=== PATIENT | female | born 1935 | race Caucasian/White ===

== ENCOUNTER 2019-01-31 19:07 | Inpatient (IN) | payer MEDICARE, OTHER ==
--- NOTE | 2019-01-31 20:02 | RAD ---
AP VIEW OF THE PELVIS 01/31/19 INDICATION: Found in a puddle of blood; unwitnessed fall. FINDINGS: There is diffuse osteopenia. No definite displaced fracture is evident. There is a prominent amount o f retained stool within the colon. Bowel gas pattern is nonspecific. There is dextroscoliosis of the lumbar spine. IMPRESSION: No acute osseous abnormality is evident. POS: [facility]
--- NOTE | 2019-01-31 20:04 | RAD ---
THREE VIEWS RIGHT FORELE01/31/19 INDICATION: Fall. COMPARISON: None. FINDINGS/IMPRESSION: There is dystrophic calcifications within the soft tissues of the anterolateral right knee No definit e acute fracture or subluxation is evident. There is diffuse osteopenia. POS: [facility]
--- NOTE | 2019-01-31 20:05 | RAD ---
RIGHT HAND THREE VIEWS: 01/31/19 INDICATION: Fall with right hand pain. COMPARISON: None. FINDINGS: There is advanced first [facility]MC osteoarthrosis. No acute fracture or subluxation is evident. There is dif fuse osteopenia. Chondrocalcinosis seen within the radiocarpal joint. IMPRESSION: No acute osseous abnormality. POS: [facility]
--- NOTE | 2019-01-31 20:09 | RAD ---
CHEST ONE VIEW 01/31/19 INDICATION: History of unwitnessed fall. COMPARISON: Prior exam dated 02/14/14. Lungs are clear. There is mild cardiomegaly. Pulmonary vasculature appear within normal limits. No p leural effusion is evident. There is diffuse osteopenia. There is suggestion of possible an obliquely oriented fracture involving the right clavicle. Would recommend consideration for dedicated right sh oulder films to evaluate for possible clavicular injury. IMPRESSION: 1. No acute cardiopulmonary abnormality. 2. Suspicion for midshaft right clavicle fracture. POS: [facility]
[2019-01-31 20:17] LABS: #Lymphocytes 0.8 thou/uL (1.20-3.40); #Monocytes 0.6 thou/uL (0.11-0.59); #Neutrophils 10.4 thou/uL (1.40-6.50); %Eosinophils 0.2 % (0.0-10.0); %Neutrophils 87.7 % (42.0-75.0); Hemoglobin 12.5 g/dL (12.0-16.0); Mean Corpuscular HGB CONC 30.7 g/dL (32.0-36.0); Mean Corpuscular Hemoglobin 28.5 pg (27.0-31.0); Mean Corpuscular Volume 92.7 fL (78.0-98.0); Mean Platelet Volume 8.8 fL (7.4-10.4); Platelet Count 170 thou/uL (130-400); RBC Distribution Width 12.8 % (11.5-14.5); Red Blood Cell (RBC) Count 4.39 mill/uL (4.20-5.40); White Blood Cell (WBC) Count 11.8 thou/uL (4.8-10.8)
--- NOTE | 2019-01-31 20:17 | CT ---
CT CERVICAL SPINE NONCONTRAST: 01/31/19 HISTORY: 84-year-old female status post acute cervical trauma from fall. FINDINGS: There are no jumped or perched facets. There is no evidence of acute fracture. The vertebral body h eights are maintained. There is no prevertebral soft tissue swelling. IMPRESSION: No evidence of acute fracture or acute traumatic subluxation. jn [] POS: [facility]
--- NOTE | 2019-01-31 20:21 | CT ---
CT OF THE FACE WITHOUT CONTRAST 01/31/19 INDICATION: Fall with facial injuries. FINDINGS: There is a prominent right periorbital contusion and right across scalp contusion. Right [place] lens has been replaced. There is sinus wall thickening involving the right maxillary sinus with mucosal th ickening. No definite acute fracture or subluxation is present. There is prominent multilevel spondyl osis of the visualized upper cervical spine. craniocervical junction appears within normal limits. Th e visualized intracranial contents are within normal limits. IMPRESSION: 1. No acute fracture or subluxation. 2. Prominent right periorbital soft tissue contusion. 3. Chronic sinusitis of the right maxillary sinus. POS: [facility]
[2019-01-31 20:25] LABS: INR-International Normal Ratio 1.4; PTT 27.1 SEC (22.9-36.1); Prothrombin Time 16.9 SEC (12.0-14.7)
--- NOTE | 2019-01-31 20:25 | CT ---
CT OF THE BRAIN WITHOUT CONTRAST 01/31/19 INDICATION: History of fall with concern for head injury. FINDINGS: There is a prominent right periorbital and right frontal scalp contusion. The right resighini lens has b een replaced. There is mucosal thickening with sinus wall thickening involving the right maxillary si nus with changes of chronic sinusitis. No acute infarct, hemorrhage, or hydrocephalus is present. There is stable remote lacunar infarct inv olving the right thalamus when compared to prior dated 01/31/14. There is generalized cerebral and cerebellar atrophy. There is mild chronic small vessel white matte r ischemic change. IMPRESSION: 1. No acute intracranial abnormality. 2. Soft tissue swelling of the right periorbital region right frontal scalp. 3. Chronic sinusitis changes involving the right maxillary sinus. POS: [facility]
[2019-01-31 20:42] LABS: ALT (SGPT) 12 U/L (8-55); AST (SGOT) 31 U/L (5-34); Acetaminophen Less than 6.0 mcg/mL (10.0-30.0); Albumin 3.5 g/dL (3.4-4.8); Alcohol Less than 10 mg/dL (Less than 10); Alkaline Phosphatase 96 U/L (40-150); Anion Gap 19 mmol/L (10-20); BUN (Urea Nitrogen) 49 mg/dL (9.8-20.1); Bilirubin, Total 1.3 mg/dL (0.2-1.2); CK (CPK) 959 U/L (29-168); Calc. Creatinine Clearance 0 mL/min (70-130); Calcium 10.1 mg/dL (7.8-10.44); Carbon Dioxide 31 mmol/L (23-31); Chloride 100 mmol/L (98-107); Estimated GFR-MDRD 14; Globulin 3.6 g/dL (2.4-3.5); Glucose 151 mg/dL (83-110); Lipase 57 U/L (8-78); Protein, Total 7.1 g/dL (6.0-8.3); Salicylate Less than 8.0 mg/dL (15.0-30.0); Sodium 147 mmol/L (136-145)
[2019-01-31 21:10] LABS: CKMB 15.5 ng/mL (0-6.6)
[2019-01-31 21:42] LABS: Bilirubin Small (Negative); Blood, Urine Large (Negative); Clarity CLOUDY (Clear); Glucose, Urine (Dipstick) Negative (Negative); Leukocyte Negative (Negative); Nitrite Negative (Negative); Protein, Urine (Dipstick) 30 mg/dL (Neg-Trace); Specific Gravity, Urine 1.013 (1.002-1.036); Urobilinogen 0.2 mg/dL (0.2-1.0)
[2019-01-31 21:43] LABS: Bacteria/HPF None Seen HPF (None Seen); Hyaline Casts/LPF 4-6 HYALINE CAST LPF (0-3 Hyaline); Pathc Cast-AUWi Flag 0.95 (0-2.49); Squamous Epithelial 0-3 HPF (0-3); WBC/HPF 0-3 HPF (0-3); Yeast-AUWi Flag 42.1 (0-25.0)
[2019-01-31 21:48] LABS: Amphetamine Not Detected (NotDetected); Barbiturates Screen Not Detected (NotDetected); Benzodiazepine Screen Not Detected (NotDetected); Cocaine Metabolite Screen Not Detected (NotDetected); Medtox Reader # READER 4; Methadone Not Detected (NotDetected); Methamphetamine Not Detected (NotDetected); Opiate Screen Not Detected (NotDetected); Oxycodone Screen Not Detected (NotDetected); Phencyclidine (PCP) Not Detected (NotDetected); THC/Cannabinoid Screen Not Detected (NotDetected); Tricyclic Screen Not Detected (NotDetected)
[2019-01-31 21:49] LABS: Medtox Control Line Valid? VALID (VALID)
[2019-01-31] MEDS ORDERED: Dextrose 5% in Water 1,000 ML IV PRN (22:33)
[2019-01-31] MEDS ORDERED: Dextrose 50% Abboject 50 ML SYRINGE SLOW IVP PRN (22:33)
[2019-01-31] MEDS ORDERED: hydrALAZINE 20 MG/ML VIAL SLOW IVP PRN (22:33)
[2019-01-31] MEDS ORDERED: traMADol HCl 50 MG TAB PO PRN (22:42)
[2019-01-31] MEDS ORDERED: Potassium Chloride 40 MEQ in Sodium Chloride 0.9% 500 ML IVPB SCH (23:59)
[2019-02-01] MEDS ORDERED: Bacitracin Zinc 1 Packet ONE (00:04)
--- NOTE | 2019-02-01 00:15 | HP ---
HISTORY OF PRESENT ILLNESS: An 84-year-old woman brought into the emergency room by EMS after falling today and hitting her head. Patient denies losing consciousness, but initially was unable to tell the ER why she fell. Patient lives alone and her neighbors check on her daily. The neighbors report she has family, but her family does not come to see her. They also state that they have been watching over her and checking on her for many years now and feel that she should not be living alone. They did report her primary care physician started her with physical therapy which comes to her home two times a week. She was found face down on the floor when the neighbor arrived to check on her and reports she was a little confused. The patient uses a walker or a cane when getting around at home per her neighbors. Patient was worked up in the emergency room due to multiple falls. Patient was found to have an elevated troponin level and NSTEMI. Cardiology was consulted by the ER physician. Patient is on Eliquis, but unable to verbalize why she is taking it. Patient is unable to give a full medical history. Patient reports right clavicle pain, right hand pain. Patient denies being short of breath, dizziness or chest pain prior to falling. Patient received 1 liter NS in ER. ALLERGIES: DENIES ANY DRUG ALLERGIES. HOME MEDICATIONS: Lasix 40 mg daily, Losartan 50 mg daily, Eliquis 2.5mg BID, Mirtazapine 30 mg dailyu, Carvediol 3.125 mg BID, B12 1000mg PAST MEDICAL HISTORY: Hypertension, osteoporosis, and coronary artery disease. PAST SURGICAL HISTORY: Right knee, cardiac catheterization in 2004, and ovarian surgery. SOCIAL HISTORY: Patient lives alone in her home, denies alcohol use, denies drug use, denies smoking history. REVIEW OF SYSTEMS: A 10-point review of system is negative unless otherwise stated in the HPI. PHYSICAL EXAMINATION: VITAL SIGNS: Blood pressure 115/64, pulse 79, respirations 20, SpO2 of 95% on room air, and temperature 98.6. GENERAL: Patient is awake and alert, in no distress. HEENT: A 2 cm superficial laceration over the right eyebrow, closed in the ER with Steri-Strips. Bleeding is controlled. Right periorbital area with ecchymosis and edema, difficulty opening eye due to swelling. Left pupil 3 mm and reactive. Pharynx exam normal. Mucous membranes moist. Trachea is midline. NECK: No JVD. RESPIRATORY: Breath sounds clear. No respiratory distress. No wheezing, rales , or rhonchi. CARDIOVASCULAR: Regular rate and rhythm. No murmur. No pedal edema. ABDOMEN: Soft, nontender, and nondistended. Active bowel sounds. EXTREMITIES: Moves all extremities. Positive distal pulses. Right hand with superficial abrasion on the dorsal aspect, no active bleeding, no laceration. Both knees with bilateral contusions. Positive distal pulses. Full range of motion. NEUROLOGIC: Patient is oriented to person, place, and time. GCS is 15. LABORATORY DATA: WBC 11.8, RBC 4.39, hemoglobin 12.5, hematocrit 40.7, and platelets 170. PT 16.9, INR 1.4, and APTT 27.1. Sodium 147, potassium 3.0, chloride 100, CO2 is 31, anion gap 19, BUN 49, creatinine 3.06, estimated GFR 14 , glucose 151, calcium 10.1, total bilirubin 1.3, AST 31, ALT 12, and alkaline phos 96. CK 959, CK-MB 15.5, troponin I 4.368, and BNP 2005.1. Serum total protein 7.1, albumin 3.5, globulin 3.6, and lipase 57. Urinalysis; protein 30, nitrites negative, negative leukocyte esterase, negative white blood cells, negative rbc , no bacteria seen. Plasma alcohol less than 10. DIAGNOSTICS: 1. Pelvis CT, no acute abnormalities. Chest x-ray, no acute cardiopulmonary abnormality. Suspicion for a midshaft right clavicular fracture. 2. Facial bone CT, no acute fracture or subluxation. Cervical spine CT, no evidence of acute fracture or acute traumatic subluxation. 3. Right hand x-ray, no acute abnormality. 4. Tibia, fibula x-ray, right. No acute fracture. 5. Brain CT; no acute intracranial abnormality. Soft tissue swelling of the right periorbital region, right frontal scalp. Chronic sinusitis changes involving the right maxillary sinus. 6. Ground level fall, unwitnessed, recurrent falls. 7. Right clavicle fracture. 8. Right periorbital contusion, on Eliquis. 9. [id number]-[id number] myocardial infarction. 10. Acute on chronic kidney disease. 11. Failure to thrive. PLAN: We will admit patient to the IMCU for q.2 hours neuro checks. We will repeat head CT in the morning. Unless patient has a change in GCS, then we will repeat a head CT sooner. Cardiology has been consulted for exc-BY-gbyijimhh KS. We will trend patient's troponins. We will trend kidney function and start on low maintenance IV fluids. We will hold patient's Eliquis. We will order physical and occupational therapy. We will also anticipate and plan for either inpatient rehab or long-term care as the patient has had multiple falls and the neighbors report that they do not feel like she is safe at home and needs 24-hour care. The plan has been discussed with Dr. Aguilera, who agrees. Job ID: [id number] [facility]
[2019-02-01 00:20] LABS: CKMB 27.3 ng/mL (0-6.6)
[2019-02-01] MEDS: Acetaminophen 325 MG TAB PO SCH ×5 (02:15→18:31)
[2019-02-01 02:37] VITALS: BMI 18.3
--- NOTE | 2019-02-01 07:58 | ULT ---
DOPPLER VENOUS ULTRASOUND OF BOTH LOWER EXTREMITIES: CPT: 15885 ICD-10-PCS: B54D INDICATION: Concern for bilateral DVTs with elevated D-dimer. TECHNIQUE: Color flow Doppler, spectral waveform analysis of pulsed Doppler, and jennings-scale imaging with samra augusto and augmentation, were used to evaluate the bilateral common femoral, femoral, popliteal, analog ic design engineer ior tibial, and superficial femoral, veins; and the proximal portions of the profunda femoral and gre ater saphenous, veins. FINDINGS: There is diminished compression at the right common femoral vein with evidence of an eccentric hetero geneous clot within the right common femoral vein suspicious for chronic DVT. Normal compression and flow are seen within the right profunda femoral vein. There is eccentric partially compressible lupis t that is partially occlusive within the right proximal, right mid, and right distal femoral vein. A ppropriate flow and augmentation is seen within the right popliteal vein and right posterior tibial v ein. There is partially occlusive eccentric clot seen within the anterior aspect of the left common femora l vein. There is normal flow present within the left femoral veins. Some eccentric partially occlus ericka thrombus is seen at the left popliteal vein. Normal flow is seen within the left posterior tibia l vein. IMPRESSION: 1. Findings of chronic-appearing deep vein thrombosis at the level of the right common femoral vein through the level of the right superficial femoral vein. 2. Chronic-appearing deep vein thrombosis at the left common femoral vein and left popliteal vein. POS: [facility]
--- NOTE | 2019-02-01 08:01 | CT ---
CT HEAD NONCONTRAST: COMPARISON: Previous day. INDICATION: Anticoagulated patient with a history of head trauma related to fall. FINDINGS: Head CT is stable to previous day without interval development of acute intracranial hemorrhage, mass effect, or midline shift. There remains a prominent-sized frontal scalp and facial hematoma extendi ng to the right periorbital region. Chronic ischemic disease is similar. There is a stable calvaria l lucency at the occiput which indicates an arachnoid granulation. IMPRESSION: No interval acute intracranial hemorrhage or mass effect. POS: [facility]
[2019-02-01] MEDS ORDERED: Sodium Chloride 0.9% 1,000 ML IV SCH (08:45)
[2019-02-01] MEDS ORDERED: Prevnar 13-Val Conj/PF 0.5 ML SYRINGE IM ONE (09:00)
[2019-02-01 09:16] LABS: #Lymphocytes 2.1 thou/uL (1.20-3.40); #Monocytes 0.9 thou/uL (0.11-0.59); #Neutrophils 7.6 thou/uL (1.40-6.50); %Basophils 0.2 % (0.0-1.0); %Eosinophils 0.3 % (0.0-10.0); %Lymphocytes 19.9 % (21.0-51.0); %Monocytes 8.1 % (0.0-10.0); %Neutrophils 71.5 % (42.0-75.0); Hemoglobin 10.9 g/dL (12.0-16.0); Mean Corpuscular HGB CONC 31.2 g/dL (32.0-36.0); Mean Corpuscular Hemoglobin 28.4 pg (27.0-31.0); Mean Corpuscular Volume 91.1 fL (78.0-98.0); Mean Platelet Volume 8.9 fL (7.4-10.4); Platelet Count 151 thou/uL (130-400); RBC Distribution Width 12.7 % (11.5-14.5); Red Blood Cell (RBC) Count 3.84 mill/uL (4.20-5.40); White Blood Cell (WBC) Count 10.7 thou/uL (4.8-10.8)
[2019-02-01 09:27] LABS: INR-International Normal Ratio 1.4; PTT 30.8 SEC (22.9-36.1); Prothrombin Time 17.5 SEC (12.0-14.7)
[2019-02-01] MEDS: Senokot S 8.6-50 MG TAB PO SCH ×3 (09:31→20:28)
[2019-02-01 09:44] LABS: Phosphorus 3.5 mg/dL (2.3-4.7)
[2019-02-01 09:47] LABS: ALT (SGPT) 15 U/L (8-55); AST (SGOT) 56 U/L (5-34); Albumin 2.8 g/dL (3.4-4.8); Alkaline Phosphatase 77 U/L (40-150); Anion Gap 12 mmol/L (10-20); BUN (Urea Nitrogen) 52 mg/dL (9.8-20.1); Calc. Creatinine Clearance 13 mL/min (70-130); Calcium 9.1 mg/dL (7.8-10.44); Carbon Dioxide 31 mmol/L (23-31); Chloride 107 mmol/L (98-107); Estimated GFR-MDRD 19; Globulin 3.1 g/dL (2.4-3.5); Glucose 109 mg/dL (83-110); Magnesium 1.7 mg/dL (1.6-2.6); Potassium 3.6 mmol/L (3.5-5.1); Protein, Total 5.9 g/dL (6.0-8.3); Sodium 146 mmol/L (136-145)
[2019-02-01 09:55] LABS: Critical Call Chem Troponin I RESULT DECREASING
[2019-02-01 10:22] LABS: CKMB 31.4 ng/mL (0-6.6)
[2019-02-01] MEDS: Sodium Chloride 0.9% 1,000 ML IV SCH ×2 (11:00→12:40)
[2019-02-01] MEDS ORDERED: Sodium Chloride 0.9% 500 ML IV SCH (12:15)
[2019-02-01] MEDS: Polyethylene Glycol 3350 17 GM Packet PO SCH (12:42)
--- NOTE | 2019-02-01 12:51 | CON ---
DATE OF CONSULTATION: REASON FOR CONSULTATION: Elevated troponin, DVT, and recent fall. HISTORY OF PRESENT ILLNESS: Ms. Noel is an 84-year-old woman, who has been seen and evaluated by Dr. Salvador Juares in the past. She has a previous history of underlying coronary artery disease with thrombus present to the right coronary artery in 2004. This was treated medically. Source was felt to be unknown. She was last seen and evaluated by Dr. Salvador Juares on October 28, 2018. She has not had an echo in the office recently. Recently, she fell. She states she tripped. No syncope or presyncope. She had significant trauma noted to the head area. Her CT scan was negative for significant bleed. She also had a fractured clavicle. No chest pain or pressure noted. She is currently on Eliquis for what appears to be a DVT. Her ultrasound of the lower extremities did suggest partial occlusion of the distal common femoral vein bilaterally. PAST CARDIAC HISTORY: As described above. PAST MEDICAL HISTORY: Hyperlipidemia, mitral valve disease, previous GA, chronic kidney disease, lower extremity edema, hypertension, and ischemic cardiomyopathy. ALLERGIES: NONE. HOME MEDICATIONS: Include: 1. Lasix. 2. Carvedilol. 3. Losartan. 4. Eliquis. 5. Mirtazapine. PAST SURGICAL HISTORY: Knee surgery and ovarian surgery. SOCIAL HISTORY: She currently lives alone. REVIEW OF SYMPTOMS: Ten-point review of systems is reviewed as above, otherwise negative. PHYSICAL EXAMINATION: VITAL SIGNS: Blood pressure 116/62, pulse 80, and respirations 20. GENERAL: Patient is a pleasant woman, who is in no acute distress. The patient appears their stated age. NEUROLOGIC: The patient is alert and oriented x3 with no focal neurologic deficits. HEENT: Significant ecchymosis overlying the right and left orbital areas as well as chin. NECK: No JVD. Carotid upstroke brisk. No bruits bilaterally. LUNGS: Clear to auscultation with unlabored respirations. BACK: No scoliosis or kyphosis. CARDIAC: Regular rate and rhythm with normal S1 and S2. No S3 or S4 noted. No significant rubs, murmurs, thrills, or gallops noted throughout the precordium. PMI is not displaced. There is no parasternal heave. ABDOMEN: Soft, nontender, nondistended. No peritoneal signs present. No hepatosplenomegaly. No abnormal striae. EXTREMITIES: 2+ femoral and 2+ dorsalis pedis pulses. No cyanosis, clubbing, or edema. SKIN: No gross abnormalities PERTINENT LABORATORY DATA: Sodium 146, BUN 52, creatinine 2.47. CK-MB of 31 with a troponin at 5.3 and downtrending. IMPRESSION: 1. Elevated troponin. 2. Previous coronary artery disease. 3. Deep venous thrombosis. 4. Fractured clavicle. RECOMMENDATIONS: Certainly, it is a difficult situation for Ms. Noel. She has not had any recent studies in the office to assess her coronary anatomy. She does have mild confusion underlying. I have reached out to her family member and was unable to. At this point, we would recommend conservative therapy based on her kidney function. Could proceed with a noninvasive stress study, but I am not sure the treatment would change. We would recommend echo Doppler and we will review. We would also recommend an IVC filter. It appeared she has a history of significant falls while at home. She will also need placement. We will discuss IVC filter placement with family. It may need to be an internal jugular approach based on the findings, although, after reviewing her ultrasound, there may be an option to access the right common femoral vein. Hold Ricky. Job ID: [id number]
--- NOTE | 2019-02-01 13:01 | RAD ---
KUB: COMPARISON: None. HISTORY: Dobbhoff tube placement. FINDINGS: A single view of the abdomen shows a nonspecific, nonobstructed bowel gas pattern. A Dobbhoff tube i s seen in the left upper quadrant of the abdomen, likely within the stomach. Degenerative changes ar e seen in the spine. IMPRESSION: Dobbhoff tube located in the stomach. POS: [facility]
[2019-02-01 16:34] LABS: #Eosinphils 0.1 thou/uL (0.0-0.7); #Lymphocytes 2.8 thou/uL (1.20-3.40); #Monocytes 0.6 thou/uL (0.11-0.59); %Eosinophils 0.7 % (0.0-10.0); %Lymphocytes 22.3 % (21.0-51.0); Hemoglobin 11.3 g/dL (12.0-16.0); Mean Corpuscular HGB CONC 31.8 g/dL (32.0-36.0); Mean Corpuscular Hemoglobin 28.9 pg (27.0-31.0); Mean Corpuscular Volume 90.9 fL (78.0-98.0); Mean Platelet Volume 8.9 fL (7.4-10.4); Platelet Count 155 thou/uL (130-400); RBC Distribution Width 12.7 % (11.5-14.5); White Blood Cell (WBC) Count 12.5 thou/uL (4.8-10.8)
--- NOTE | 2019-02-01 17:46 | PRG ---
DATE OF SERVICE: 02/01/2019 SUBJECTIVE: Ms. Noel is an 84-year-old woman who was admitted yesterday following recurrent falls. This time, she suffered multiple soft tissue contusions as well as right clavicle fracture. This requires no operative intervention. The patient is on Eliquis at home for a history of lower extremity VTE. She has a [id number] myocardial infarction for which Cardiology anticipates no intervention at this time. Her chronic kidney disease is stable. Nursing reports adequate urinary output. The patient has very poor appetite. She is quite deconditioned, cachectic, and anorexic. OBJECTIVE: VITAL SIGNS: This morning include blood pressure 97/58, pulse is 64, respiratory rate is 13, temperature 98.3 degrees Fahrenheit, oxygen saturation 95% on 2 L by nasal cannula oxygen. HEENT: Multiple facial contusions, stable. Pupils are equal, round, and reactive to light and accommodation. HEART: Reveals regular rate and rhythm. LUNGS: Clear to auscultation bilaterally. Breathing, regular and unlabored. ABDOMEN: Soft, nontender, and nondistended. NEUROLOGIC: Reveals no focal deficits present. LABORATORY FINDINGS: Today include a CBC with 12,500 white blood cells, hemoglobin and hematocrit 11.3 and 35.4 respectively. Platelet count is 155,000. Metabolic profile; sodium 146, potassium is 3.6, chloride is 107, bicarb is 31, BUN is 52, creatinine is 2.47, glucose is 109, phosphorus is 3.5, magnesium is 1.7. Troponin I was noted at 5.908, and 6 hours later, it was 5.365. BNP yesterday was 2005. IMPRESSIONS: 1. Recurrent multiple falls, on Eliquis. 2. History of venous thromboembolism. 3. Right clavicle fracture. 4. Multiple soft tissue contusions. 5. Cachexia with chronic malnutrition. PLAN: Continue with physical and occupational therapy. I discussed with the patient with regard to nutritional support. She is agreeable to short-term nasogastric tube enteral nutritional supplementation. This will be in addition to whatever she is able to take by mouth. We will ask comp field case manager to begin discharge planning hopefully to longterm facility as the patient is clearly unable to care for herself at home. Cardiology is considering placement of IVC filter as this patient with a history of multiple falls at this age is at very high-risk for devastating intracranial hemorrhage. The patient agrees with plan. Job ID: [id number]
[2019-02-02] MEDS: Acetaminophen 325 MG TAB PO SCH ×4 (00:37→18:29)
[2019-02-02 06:31] LABS: INR-International Normal Ratio 1.3; PTT 32.3 SEC (22.9-36.1); Prothrombin Time 16.4 SEC (12.0-14.7)
[2019-02-02 06:47] LABS: Anion Gap 10 mmol/L (10-20); BUN (Urea Nitrogen) 51 mg/dL (9.8-20.1); Calc. Creatinine Clearance 16 mL/min (70-130); Calcium 8.8 mg/dL (7.8-10.44); Carbon Dioxide 31 mmol/L (23-31); Chloride 110 mmol/L (98-107); Estimated GFR-MDRD 23; Glucose 148 mg/dL (83-110); Magnesium 1.7 mg/dL (1.6-2.6); Potassium 3.3 mmol/L (3.5-5.1); Sodium 148 mmol/L (136-145)
[2019-02-02] MEDS: Sodium Chloride 0.9% 1,000 ML IV SCH (07:13)
[2019-02-02] MEDS ORDERED: Magnesium Sulfate 2 GM in Sodium Chloride 0.9% 100 ML IVPB SCH (09:00)
[2019-02-02] MEDS ORDERED: Lactated Ringer's 1,000 ML IV SCH (09:45)
[2019-02-02] MEDS ORDERED: Potassium Phosphate 30 MMOL, Magnesium Sulfate 2 GM in Sodium Chloride 0.9% 500 ML IVPB SCH (10:00)
[2019-02-02] MEDS: Senokot S 8.6-50 MG TAB PO SCH ×2 (11:30→20:55)
[2019-02-02] MEDS: Polyethylene Glycol 3350 17 GM Packet PO SCH (11:32)
[2019-02-02] MEDS: D5 1/2 NS w/20 mEq KCL 1,000 ML IV SCH ×2 (11:35→20:55)
--- NOTE | 2019-02-02 12:56 | PRG ---
DATE OF SERVICE: 02/02/2019 SUBJECTIVE: Ms. Noel today is much more oriented and alert. She is alert to time, person, and place. She is seen sitting up. She has less swelling to her right eye. After talking to her about a recent fall, she states she is not susceptible to falls. She has had 2 falls in the last week, but otherwise has not had any falls over the last 6 months. This was confirmed by Kayleigh, care provider. Ms. Noel has no immediate family. No kids and her . OBJECTIVE: VITAL SIGNS: Blood pressure 110/54, pulse 99, and temperature afebrile. LUNGS: Clear to auscultation. HEART: Regular rate and rhythm. ABDOMEN: Soft, nontender, and nondistended. EXTREMITIES: No edema. DIAGNOSTIC DATA: Echo, Doppler pending. PERTINENT LABORATORY DATA: Hemoglobin 11.3 and white blood cell count 12.5. IMPRESSION: 1. Myocardial infarction, type 2. 2. Previous history of ischemic cardiomyopathy. 3. Acute on chronic renal insufficiency. 4. Recent fall. 5. Chronic deep venous thrombosis. RECOMMENDATIONS: I have discussed the case with Ms. Noel as well as Kayleigh, her provider. It does not appear she is susceptible to falls. At this point, I would recommend restarting anticoagulation therapy when okay with primary team. At this point, there is no indication for IVC filter placement. If she continues to have issues with falls (this may be related to volume contraction), then we would reconsider IVC filter placement. We will review her echo. Job ID: [id number]
--- NOTE | 2019-02-02 14:29 | PRG ---
DATE OF SERVICE: 02/02/2019 SUBJECTIVE: Ms. Noel is an 84-year-old woman, who was admitted 2 days previously for ground level fall. The patient is more awake and alert this morning and very interactive. She was very thankful for the care she has been receiving. She moves all extremities and answers questions appropriately. She was wondering when it will be possible for her to have something to drink as she has been n.p.o. for previously planned IVC filter placement. I conferred with Dr. Fagan from Cardiology Department this morning. We will both concurred that given the patient is more awake and alert, chances of fall becomes less. It is conceivable that with safety measures in place including transfer to alf facility, initiating chemical VTE prophylaxis will be appropriate at this time. To this end, IVC filter placement will be withheld. OBJECTIVE: VITAL SIGNS: This morning includes blood pressure 104/60, pulse is 73, respiratory rate is 19, temperature is 98.4 degrees Fahrenheit, and oxygen saturation is 99% on 2 L by nasal cannula oxygen. HEART: Reveals regular rate and rhythm. LUNGS: Clear to auscultation bilaterally. Breathing, regular and nonlabored. ABDOMEN: Soft, nontender, and nondistended. NEUROLOGIC: Reveals no focal deficits present. LABORATORY FINDINGS: Includes metabolic profile; sodium 148, potassium 3.3, chloride is 110, bicarb is 31, BUN is 51, creatinine is 2.06, glucose is 148, magnesium 1.7, and phosphorus 3.0. IMPRESSION: 1. Status post ground level fall, hemodynamically and neurologically improved. 2. Right clavicle fracture. 3. Multiple soft tissue contusions. 4. Cachexia with chronic malnutrition. PLAN: 1. Increase activity per Physical and Occupational therapy. 2. Advance diet as the patient tolerates. Meanwhile, we will continue with enteral nutritional supplementation via the nasogastric tube. 3. Begin discharge planning by case planner in consideration for transfer to alf facility as soon as bed is available and insurance authorization has been secured. 4. Above findings and plan discussed with the patient, who indicates understanding of the information given. 5. We will resume Ricky. Job ID: [id number]
[2019-02-02] MEDS: Apixaban 2.5 MG TAB PO SCH (20:55)
[2019-02-03] MEDS: Acetaminophen 325 MG TAB PO SCH ×5 (00:22→18:17)
[2019-02-03 09:33] LABS: Hemoglobin 11.3 g/dL (12.0-16.0); Mean Corpuscular HGB CONC 29.1 g/dL (32.0-36.0); Mean Corpuscular Hemoglobin 28.1 pg (27.0-31.0); Mean Corpuscular Volume 96.6 fL (78.0-98.0); Mean Platelet Volume 8.8 fL (7.4-10.4); Platelet Count 176 thou/uL (130-400); RBC Distribution Width 13.1 % (11.5-14.5); White Blood Cell (WBC) Count 7.8 thou/uL (4.8-10.8)
[2019-02-03 09:38] LABS: Anion Gap 12 mmol/L (10-20); BUN (Urea Nitrogen) 37 mg/dL (9.8-20.1); Calc. Creatinine Clearance 21 mL/min (70-130); Calcium 8.7 mg/dL (7.8-10.44); Carbon Dioxide 27 mmol/L (23-31); Chloride 110 mmol/L (98-107); Estimated GFR-MDRD 32; Glucose 160 mg/dL (83-110); Potassium 4.2 mmol/L (3.5-5.1); Sodium 145 mmol/L (136-145)
[2019-02-03 09:39] LABS: Phosphorus 2.6 mg/dL (2.3-4.7)
[2019-02-03] MEDS: Polyethylene Glycol 3350 17 GM Packet PO SCH (10:28)
[2019-02-03] MEDS: D5 1/2 NS w/20 mEq KCL 1,000 ML IV SCH ×2 (10:35→18:21)
[2019-02-03] MEDS: Senokot S 8.6-50 MG TAB PO SCH ×2 (10:50→20:47)
[2019-02-03] MEDS: Apixaban 2.5 MG TAB PO SCH ×2 (10:50→20:47)
--- NOTE | 2019-02-03 16:27 | PRG ---
DATE OF SERVICE: 02/03/2019 SUBJECTIVE: This is an 84-year-old female, who was admitted 3 days ago and had previous ground level fall. The patient is awake and alert this morning, and able to open her right eye half now. The patient with full vision. The patient does not have as much of an appetite as she did yesterday. Dobbhoff tube remains in place to facilitate additional nutrition. OBJECTIVE: VITAL SIGNS: Temperature 98.1, pulse 85, respirations 14, SpO2 of 94% on room air, and blood pressure 117/70. GENERAL: The patient is awake, alert, in no distress. HEENT: Bruising and edema improving to right periorbital area. HEART: Regular rate and rhythm. LUNGS: Clear to auscultation bilaterally. Breathing regular and nonlabored. ABDOMEN: Soft, nontender, and nondistended. NEUROLOGIC: Reveals no focal deficits. LABORATORY DATA: WBC 7.8, RBC 4.00, hemoglobin 11.3, hematocrit 38.6, and platelets 176. Sodium 145, potassium 4.2, chloride 110, BUN 37, creatinine 1.55, estimated GFR 32, glucose 160, calcium 8.7, phosphorus 2.6, and magnesium 2.0. DIAGNOSTICS: Echocardiogram: Ejection fraction is visually estimated at 20% to 25%, suggesting systolic dysfunction. Normal right ventricle. Normal right atrial size. Severe mitral regurgitation. Normal aortic valve structure. IMPRESSION: 1. Status post ground level fall. 2. Right clavicle fracture. 3. Multiple soft tissue contusions. 4. Chronic malnutrition. PLAN: Increase activity per Physical Therapy and Occupational Therapy. Advance diet as tolerated. The patient did pass her swallow study with Speech Therapy. We will continue to let the patient eat as tolerated and supplement via nasogastric tube as the patient has chronic malnutrition. Cardiology has also spoke with the patient about echocardiogram results and possible need for a LifeVest. linen worker is working on placement to potential jail facility. The patient remains on her Eliquis at this time. The patient was examined with Dr. Garcia today during morning rounds. Job ID: [id number]
--- NOTE | 2019-02-03 17:18 | PRG ---
DATE OF SERVICE: SUBJECTIVE: Ms. Noel is doing well. No current complaints. She is surrounded by her friends. No chest pain, pressure, shortness of breath, or associated symptoms. PHYSICAL EXAMINATION: GENERAL: Patient is a pleasant female, who is in no acute distress. The patient appears their stated age. VITAL SIGNS: Blood pressure 110/70, pulse 80, respirations 20. NEUROLOGIC: The patient is alert and oriented x3 with no focal neurologic deficits. HEENT: Sclerae without icterus. Mouth has moist mucous membranes with normal pallor. NECK: No JVD. Carotid upstroke brisk. No bruits bilaterally. LUNGS: Clear to auscultation with unlabored respirations. BACK: No scoliosis or kyphosis. CARDIAC: Regular rate and rhythm with normal S1 and S2. No S3 or S4 noted. No significant rubs, murmurs, thrills, or gallops noted throughout the precordium. PMI is not displaced. There is no parasternal heave. ABDOMEN: Soft, nontender, nondistended. No peritoneal signs present. No hepatosplenomegaly. No abnormal striae. EXTREMITIES: 2+ femoral and 2+ dorsalis pedis pulses. No cyanosis, clubbing, or edema. SKIN: No gross abnormalities. IMPRESSION: 1. Ischemic cardiomyopathy. 2. Recent fall. 3. Chronic deep venous thrombosis. RECOMMENDATIONS: Certainly difficult situation with Ms. Noel. She has a history of chronic kidney disease. At some point, we would like to proceed with coronary angiography, but she is at increased risk of contrast nephropathy. She has no current symptoms. Her last LVEF in the office was estimated at 40%. Her LVEF now appears to be close to 30%. There has been some decline and may be related to recent underlying condition. At this point, given no symptoms, we will continue current medical therapy. I discussed proceeding with a LifeVest. Unfortunately, she will not be able to tolerate LifeVest due to recent elevated clavicular fracture. At this point, I would recommend close observation. We will follow up with Dr. Salvador Juares in the next 1 to 2 weeks. From my standpoint, it will be okay to resume anticoagulation. If she has recurrent episodes of falls, we would then reconsider IVC filter. Job ID: [id number]
[2019-02-04] MEDS: Acetaminophen 325 MG TAB PO SCH ×4 (01:05→19:51)
[2019-02-04] MEDS: Apixaban 2.5 MG TAB PO SCH ×2 (08:59→20:26)
[2019-02-04] MEDS: Senokot S 8.6-50 MG TAB PO SCH ×2 (09:00→20:26)
[2019-02-04] MEDS: Polyethylene Glycol 3350 17 GM Packet PO SCH (09:00)
--- NOTE | 2019-02-04 13:21 | PRG ---
DATE OF SERVICE: 02/04/2019 SUBJECTIVE: The patient was seen this morning sitting up in bed, having breakfast with her niece at the bedside. The patient appearing better than previously. Reports her appetite is much improved and she is eating significantly more than days previous. Reports pain is well controlled. She is tolerating her regular diet on top of tube feeds at 50 an hour. She reports working with Physical Therapy and talking with Palliative Care. She denies nausea, vomiting, and diarrhea. She is having bowel movements and voiding spontaneously. OBJECTIVE: VITAL SIGNS: Temperature 98.1, pulse 68, respirations 16, oxygen saturation 97% on room air, blood pressure is 91/62. GENERAL: Well-appearing elderly female, sitting up in bed with no signs of distress. PULMONARY: Equal chest rise and fall. Clear breath sounds bilaterally. No significant pulmonary distress. CARDIAC: Regular rate and rhythm. No murmurs, gallops, or rubs. FACE: Right-sided periorbital swelling with Steri-Strips in place. No changes in her vision. GI: Abdomen is soft, nontender, nondistended. EXTREMITIES: Right upper extremity in sling. Gross motor and sensation intact in all 4 extremities. 2+ pulses in all extremities. No significant swelling noted. LABORATORY FINDINGS: There are no new laboratory findings to discuss. DIAGNOSTIC FINDINGS: There are no new diagnostic findings to discuss. ASSESSMENT: 1. Status post patient found down from ground level fall. 2. Right clavicle fracture. 3. Right periorbital contusion. 4. Jzq-MQ-idbczbssb myocardial infarction. 5. Acute kidney injury on chronic kidney disease, improving. 6. History of osteoporosis, coronary artery disease, hypertension, mitral valve disease, and bilateral lower extremity deep venous thrombosis. PLAN: The patient's appetite is much improved. We will start a calorie count as well as start Suplena today. If she is able to eat well throughout the day, we will stop her NG tube feeds and have the patient continue eat on her own. Cardiology recommended that we continue Eliquis and for her to follow up with her product development assistant, Dr. William Juares in 1-2 weeks. She is pending discharge to a snf facility and will likely be able to leave tomorrow if her diet has continued to improve. The patient was discussed with Dr. Aguilera this morning after rounds. Job ID: [id number] [facility]
--- NOTE | 2019-02-04 18:24 | PDOC.CTH ---
Cardiology Progress Note - Subjective The pt seen and examined. No overnight events. No cardiac complaints. - Objective Vital Signs Temp Pulse Resp BP Pulse Ox 02/04/19 15:42 98.5 F 82 16 106/56 L 02/04/19 12:28 98.1 F 68 16 91/62 97 02/04/19 07:54 97.7 F 67 18 100/62 97 Admit Weight 110 lb 8 oz Weight 110 lb 8 oz 02/03/19 02/04/19 02/05/19 06:59 06:59 06:59 Intake Total 90 840 Balance 90 840 - Physical Examination General/Neuro: alert & oriented x3 Neck: no JVD present Lungs: other: (diminished at bases) Heart: RRR Abdomen: soft Extremities: other: (edema to LUE;) - Labs Result Diagrams: 02/03/19 09:05 02/03/19 09:05 Troponin/CKMB CK-MB (CK-2) 31.4 ng/mL (0-6.6) H* 02/01/19 08:56 Troponin I 5.365 ng/mL (< 0.028) H* 02/01/19 08:56 - Assessment/Plan 1. Ischemic CMY with EF 30% - No LifeVest at discharge 2/2 hx of Rt clavicular fx; Not on BBlocker 2/2 hypotensive; Not on BRIAN/ARE 2/2 Hypotensive and CKD; the pt will f/u with Dr Juares within 1-2wks. 2. Chronic DVT - on Eliquis 2.5mg BID; possible IVC filter placement if cont. falling 3. S/p multiple Fx - managed by trauma 4. CAD - stable 5. HTN - hypotensive without any BP meds 6. CHASE on CKD - improving today MAR reviewed * From Cardiac standpoint, the pt is stable to tx to rehab with close monitoring ; the pt will f/u with Dr Juares within 1-2wks. Review of Systems - Review of Systems Constitutional: reports: no symptoms reported EENTM: reports: no symptoms reported Respiratory: reports: no symptoms reported Cardiac (ROS): reports: no symptoms reported ABD/GI: reports: no symptoms reported : reports: no symptoms reported
[2019-02-05] MEDS: Acetaminophen 325 MG TAB PO SCH ×4 (00:19→17:41)
[2019-02-05] MEDS: Apixaban 2.5 MG TAB PO SCH ×2 (08:41→20:49)
[2019-02-05] MEDS: Senokot S 8.6-50 MG TAB PO SCH ×2 (08:44→20:50)
[2019-02-05] MEDS: Polyethylene Glycol 3350 17 GM Packet PO SCH (08:44)
--- NOTE | 2019-02-05 14:06 | PQF ---
TORI JIMÉNEZ GLENROY MARIA [id number] SURG B- [id number] CLINICAL DOCUMENTATION IMPROVEMENT CLARIFICATION FORM: ICD-10 Updated PLEASE DO AN ADDENDUM TO THE PROGRESS NOTE WITH ANY DOCUMENTATION UPDATES OR ADDITIONS AND CARRY THROUGH TO DC SUMMARY. THANK YOU. DATE: 02/05/19 ATTN: DR. Ken VASQUEZ Please exercise your independent, professional judgment in responding to the clarification form. Clinical indicators are provided on the bottom of this form for your review. Please check appropriate box(s): Conflicting documentation was noted in the Medical Record, please clarify if patient is being treated/monitored for: [ ] NSTEMI D/T Demand Ischemia ( AL Type II) [X ] NSTEMI [ ] Other Diagnosis [ [ Unable to Determine In addition, please specify: Present on Admission (POA): [X ] Yes [ ] No [ ] Unable to determine For continuity of documentation, please document condition throughout progress notes and discharge summary. Thank You. CLINICAL INDICATORS - SIGNS / SYMPTOMS/ LABS TROPONIN I: 4.638, 5.908, 5.365 (01/31) ER PHYSICIAN DIAGNOSIS (02/01): NSTEMI H&P (PONZIO) 01/31: IMPRESSION: 9) NSTEMI PN (OHAJU) 02/01: SHE HAS A NSTEMI FOR WHICH CARDIOLOGY ANTICIPATES NO INTERVENTION AT THIS TIME CARDIOLOGY PN (EVANGELISTA) 02/02: AL TYPE 2 PN (WANDY) 02/04: NSTEMI RISKS: CAD W/PREVIOUS AL HTN R CLAVICLE FRACTURE S/P FALL TREATMENT: CARDIOLOGY CONSULT ECHO (02/02) THANK YOU! JENNY (This form is maintained as a part of the permanent medical record) 2014 [employer]. All Rights Reserved SHARAN [email or web address] [phone] MTDD
--- NOTE | 2019-02-05 16:39 | PRG ---
DATE OF SERVICE: 02/05/2019 SUBJECTIVE: The patient was seen this morning sitting up in bed, in no acute signs of distress, having breakfast. Reported she slept well overnight and pain was well controlled. Denied nausea, vomiting, or diarrhea. Appetite is much improved over the past 48 hours and tube feeds were stopped today for the first time. OBJECTIVE: VITAL SIGNS: Temperature 98.2, pulse 70, respirations 18, oxygen saturation 98% on room air, and blood pressure 103/61. GENERAL: Well-appearing elderly female, sitting up in bed with no signs of acute distress. PULMONARY: Equal chest rise and fall. Clear breath sounds bilaterally. No significant pulmonary distress. CARDIAC: Regular rate and rhythm. No murmurs, gallops, or rubs. HEENT: Face: Right-sided periorbital swelling with Steri-Strips in place. No changes in her vision. GI: Abdomen is soft, nontender, nondistended. EXTREMITIES: Right upper extremity in sling. Gross motor and sensation intact x4 extremities. 2+ pulses in all extremities. No significant swelling noted. LABORATORY FINDINGS: There are no laboratory findings to discuss. DIAGNOSTIC FINDINGS: There are no diagnostic findings to discuss. ASSESSMENT: 1. Status post found down from ground-level fall. 2. Right clavicle fracture. 3. Right periorbital contusion. 4. Sty-CP-jfcguwsrm myocardial infarction. 5. Acute kidney injury on chronic kidney disease, improving. 6. History of osteoporosis, coronary artery disease, hypertension, mitral valve disease, and bilateral lower extremity deep vein thromboses. PLAN: The patient continues to improve. Appetite is improving as well. We will stop tube feedings at night and the patient can continue with her diet and Suplena. She is ready for discharge, at this time is pending a bed at a [facility] facility. We will continue her Eliquis as previously discussed. Plan is for her to follow up with Dr. Juares in 1 to 2 weeks. The patient is ready for discharge at this time. The patient was discussed with Dr. Aguilera after rounds this morning. Job ID: [id number]
[2019-02-06] MEDS: Acetaminophen 325 MG TAB PO SCH ×4 (00:31→17:18)
[2019-02-06] MEDS: Polyethylene Glycol 3350 17 GM Packet PO SCH (07:10)
[2019-02-06] MEDS: Apixaban 2.5 MG TAB PO SCH ×2 (08:38→20:17)
[2019-02-06] MEDS: Senokot S 8.6-50 MG TAB PO SCH ×3 (08:46→20:17)
--- NOTE | 2019-02-06 13:17 | PRG ---
DATE OF SERVICE: 02/06/2019 SUBJECTIVE: The patient was seen this morning, sitting up in bed, having breakfast. Reported sleeping well overnight, tolerating her meal and working with Physical Therapy. She had no questions at the time. She is pending placement at a nursing home facility. OBJECTIVE: VITAL SIGNS: Blood pressure 98.5, pulse 73, respirations are 16, oxygen saturation 96% on room air, and blood pressure 106/69. GENERAL: A well-appearing elderly female, sitting up in bed with no signs of acute distress. PULMONARY: Equal chest rise and fall. Clear breath sounds bilaterally. No significant pulmonary distress. CARDIAC: Regular rate and rhythm. No murmurs, gallops, or rubs. HEENT: Face, right-sided periorbital swelling with Steri-Strips in place. No changes in vision. GI: Abdomen is soft, nontender, and nondistended. EXTREMITIES: Right upper extremity in sling. Gross motor and sensation intact x4 extremities. 2+ pulses in all extremities. No significant swelling noted. LABORATORY FINDINGS: There are no new laboratory findings to discuss. DIAGNOSTIC FINDINGS: There are no new diagnostic findings to discuss. ASSESSMENT: 1. Status post found down from ground level fall. 2. Right clavicle fracture. 3. Right periorbital contusion. 4. Non-ST elevation myocardial infarction, resolved. 5. Acute kidney injury on chronic kidney disease, improving. 6. History of osteoporosis, coronary artery disease, hypertension, mitral valve disease, and bilateral lower extremity deep vein thrombosis. PLAN: The patient continues to improve. Appetite is improving as well. She will continue her current diet and pain regimen. She will continue to receive supportive care as well as physical and occupational therapy. She is ready for discharge at this time and is pending a bed at a nursing home facility. The patient was discussed with Dr. Aguilera this morning after rounds. Job ID: [id number]
[2019-02-07] MEDS: Acetaminophen 325 MG TAB PO SCH ×5 (00:03→21:25)
[2019-02-07] MEDS: Polyethylene Glycol 3350 17 GM Packet PO SCH (08:10)
[2019-02-07] MEDS: Senokot S 8.6-50 MG TAB PO SCH ×2 (08:11→21:23)
[2019-02-07] MEDS: Apixaban 2.5 MG TAB PO SCH ×2 (08:12→21:23)
--- NOTE | 2019-02-07 13:15 | PRG ---
DATE OF SERVICE: 02/07/2019 SUBJECTIVE: This is an 84-year-old female status post fall, on chronic anticoagulation resulting in clavicle fracture. Of note, the patient was found to have an NSTEMI and acute kidney injury and has a history of DVT. Her cardiovascular issues have remained stable at this time. She is currently awaiting acceptance and bed availability of a [facility] facility. There were no acute overnight events. Upon our evaluation, the patient is resting in bed and vocalized no complaints. OBJECTIVE: VITAL SIGNS: Temperature 97.5, pulse 76, respirations are 12, O2 saturation 97% on room air, and blood pressure 118/68. GENERAL: Elderly appearing female, in no acute distress, resting in bed, attempting to eat breakfast. PULMONARY: Normal workup of breathing. Symmetric rise. CARDIOVASCULAR: Regular rate and rhythm. GI: Abdomen is soft, nontender, and nondistended. HEAD: There is some right periorbital ecchymosis and bruising. MUSCULOSKELETAL: Right upper extremity sling in place. NEUROLOGIC: No new focal deficit noted. LABORATORY FINDINGS: No new laboratory findings. RADIOGRAPHIC: Findings no new radiographic findings. ASSESSMENT: 1. Status post fall. 2. Right clavicle fracture. 3. Acute traumatic pain. 4. Ecx-EX-jymyistot myocardial infarction, followed by Cardiology. 5. History of chronic deep vein thrombosis, on chronic anticoagulation. 6. Right periorbital contusion. 7. Acute kidney injury with history of chronic kidney disease, improving. 8. History of osteoporosis, coronary artery disease, hypertension, and mitral valve disease. 9. Ischemic cardiomyopathy, ejection fraction approximately 30%. PLAN: Continue to await bed availability at accepting facility. Continue pain medications as ordered. Continue to encourage PT, OT, and mobility as tolerated and able. Follow recs from Cardiology. Last note indicates that the patient will need a 1- to 2-week followup with Dr. Juares after discharge and will not be discharged at this time with a LifeVest due to fracture. Plan of care was discussed with the patient at bedside and all questions were answered at the time of this dictation. The patient was seen and evaluated with Dr. Aguilera. Job ID: [id number]
[2019-02-08] MEDS: Acetaminophen 325 MG TAB PO SCH ×3 (01:12→17:32)
[2019-02-08 04:40] LABS: #Eosinphils 0.1 thou/uL (0.0-0.7); #Lymphocytes 2.2 thou/uL (1.20-3.40); #Monocytes 0.4 thou/uL (0.11-0.59); #Neutrophils 2.8 thou/uL (1.40-6.50); %Basophils 0.1 % (0.0-1.0); %Eosinophils 2.6 % (0.0-10.0); %Lymphocytes 39.6 % (21.0-51.0); %Monocytes 7.8 % (0.0-10.0); Hemoglobin 11.1 g/dL (12.0-16.0); Mean Corpuscular HGB CONC 32.4 g/dL (32.0-36.0); Mean Corpuscular Volume 92.6 fL (78.0-98.0); Mean Platelet Volume 8.4 fL (7.4-10.4); Platelet Count 209 thou/uL (130-400); RBC Distribution Width 13.3 % (11.5-14.5); Red Blood Cell (RBC) Count 3.71 mill/uL (4.20-5.40); White Blood Cell (WBC) Count 5.6 thou/uL (4.8-10.8)
[2019-02-08 05:21] LABS: Anion Gap 8 mmol/L (10-20); BUN (Urea Nitrogen) 35 mg/dL (9.8-20.1); Calc. Creatinine Clearance 29 mL/min (70-130); Calcium 9.6 mg/dL (7.8-10.44); Carbon Dioxide 27 mmol/L (23-31); Chloride 106 mmol/L (98-107); Estimated GFR-MDRD 46; Glucose 92 mg/dL (83-110); Phosphorus 3.1 mg/dL (2.3-4.7); Potassium 5.4 mmol/L (3.5-5.1); Sodium 136 mmol/L (136-145)
[2019-02-08] MEDS: Apixaban 2.5 MG TAB PO SCH ×2 (08:40→20:14)
[2019-02-08] MEDS: Senokot S 8.6-50 MG TAB PO SCH ×2 (08:41→22:01)
[2019-02-08] MEDS: Polyethylene Glycol 3350 17 GM Packet PO SCH (08:42)
--- NOTE | 2019-02-08 09:17 | EKG ---
Test Reason : Blood Pressure : / mmHG Vent. Rate : 086 BPM Atrial Rate : 086 BPM P-R Int : 176 ms QRS Dur : 090 ms QT Int : 456 ms P-R-T Axes : 091 034 265 degrees QTc Int : 545 ms Sinus rhythm with occasional Premature ventricular complexes and Premature atrial complexes Prolonged QT Abnormal ECG Confirmed by ZULEMA GAMBOA ([id number]), editor & co founder SIENNA BRANDON ([id number]) on 02/08/2019 9:17:12 AM Referred By: Confirmed By:ZULEMA GAMBOA
--- NOTE | 2019-02-08 09:18 | EKG ---
Test Reason : Blood Pressure : / mmHG Vent. Rate : 082 BPM Atrial Rate : 082 BPM P-R Int : 172 ms QRS Dur : 094 ms QT Int : 474 ms P-R-T Axes : 042 027 174 degrees QTc Int : 553 ms Sinus rhythm with occasional Premature ventricular complexes Prolonged QT Abnormal ECG No change Confirmed by ZULEMA GAMBOA ([id number]), acquisition editor SIENNA BRANDON ([id number]) on 02/08/2019 9:17:34 AM Referred By: Confirmed By:ZULEMA GAMBOA
--- NOTE | 2019-02-08 12:01 | PRG ---
DATE OF SERVICE: 02/08/2019 SUBJECTIVE: This is an 84-year-old female, status post presumed syncopal event while on anticoagulation, resulting in clavicle fracture. Of note, the patient was found to have an NSTEMI and acute kidney injury at the time of admission. Cardiovascular issues continued to remain stable. She is currently awaiting acceptance of bed availability at a [facility] facility. There were no acute overnight events. Upon our evaluation, the patient was resting in bed and vocalized no complaints. OBJECTIVE: VITAL SIGNS: Temperature 97.7, pulse 81, respirations 16, O2 saturation 96% on room air, and blood pressure 109/67. GENERAL: Elderly-appearing female, in no acute distress, resting in bed. Right periorbital ecchymosis and swelling. PULMONARY: Normal work of breathing. Symmetric rise. CARDIOVASCULAR: Regular rate and rhythm. GI: Abdomen was soft, nontender, and nondistended. MUSCULOSKELETAL: Right upper extremity sling is in place. Moves all extremities x4. NEUROLOGIC: No new focal deficit is noted. LABORATORY FINDINGS: WBCs 5.6, hemoglobin 11.1, hematocrit 34.4, and platelet count 209. Sodium 136, potassium 5.4, chloride 106, carbon dioxide 27, BUN 35, creatinine 1.13, glucose 92, phosphorus 3.1, and magnesium 2.0. ASSESSMENT: 1. Status post fall. 2. Right clavicle fracture. 3. Acute traumatic pain. 4. Ufb-KS-wmngjuxjj myocardial infarction, followed by Cardiology. Outpatient followup and workup recommended at this time. 5. History of deep venous thrombosis, on chronic anticoagulation. 6. Right periorbital contusion. 7. Acute kidney injury with history of chronic kidney disease, improving. 8. History of osteoporosis, coronary artery disease, hypertension, and mitral valve disease. 9. Ischemic cardiomyopathy with ejection fraction of approximately 30%. 10. Hyperkalemia. PLAN: Continue to await bed availability at accepting facility. We will recheck potassium later this afternoon and treat as clinically indicated. Continue to encourage PT/OT and mobility as tolerated. Follow Cardiology recommendations. Plan of care was discussed with the patient at bedside and all questions were answered at time of this dictation. The patient was discussed with Trauma attending. Job ID: [id number]
[2019-02-08 15:14] LABS: Potassium 5.4 mmol/L (3.5-5.1)
[2019-02-09] MEDS: Acetaminophen 325 MG TAB PO SCH ×5 (00:29→23:41)
[2019-02-09 04:54] LABS: Anion Gap 11 mmol/L (10-20); BUN (Urea Nitrogen) 53 mg/dL (9.8-20.1); Calc. Creatinine Clearance 34 mL/min (70-130); Carbon Dioxide 25 mmol/L (23-31); Chloride 105 mmol/L (98-107); Estimated GFR-MDRD 55; Glucose 95 mg/dL (83-110); Phosphorus 2.9 mg/dL (2.3-4.7); Potassium 5.8 mmol/L (3.5-5.1); Sodium 135 mmol/L (136-145)
[2019-02-09] MEDS: Polyethylene Glycol 3350 17 GM Packet PO SCH (08:58)
[2019-02-09] MEDS: Senokot S 8.6-50 MG TAB PO SCH ×2 (09:01→23:40)
[2019-02-09] MEDS: Apixaban 2.5 MG TAB PO SCH ×2 (09:01→19:58)
--- NOTE | 2019-02-09 14:41 | PRG ---
DATE OF SERVICE: 02/09/2019 SUBJECTIVE: The patient remains on the surgical floor, she is status post ground level fall, in which she sustained possible concussion, right clavicle fracture and also upon presentation to the ER noted to have a non-ST elevated NC. Otherwise, she has been doing well. She is awaiting bed availability at [facility]. She is tolerating a diet. Her pain is controlled and she continues to work with Physical and Occupational Therapy. PHYSICAL EXAMINATION: VITAL SIGNS: Temperature is 98.4, heart rate 65, blood pressure 109/66, respirations 16, oxygen saturation 99% on room air. GENERAL: The patient is resting comfortably in bed. She is awake and actually eating breakfast this morning. HEENT: Unremarkable with the exception of her resolving right periorbital ecchymosis that is improving. PULMONARY: Clear to auscultation with good inspiratory and expiratory effort. HEART: Regular rate and rhythm. ABDOMEN: Soft and nontender with active bowel sounds. EXTREMITIES: Neurovascularly intact x4. The patient moves all extremities to command. LABORATORY FINDINGS: Sodium 135, potassium 5.8, chloride 105, CO2 of 25, BUN 53, creatinine 0.97, glucose 95, magnesium 2.0, phosphorus 2.9. There are no radiographs reviewed this morning. ASSESSMENT/PLAN: 1. Status post fall. 2. Status post possible closed head injury, concussion. 3. Right clavicle fracture, being treated with sling. 4. Non-ST elevated myocardial infarction, stable, followed by Cardiology. 5. History of deep venous thrombosis, on chronic anticoagulation. 6. Right periorbital contusion. 7. Acute kidney injury with history of chronic kidney disease, improving. 8. Hyperkalemia. PLAN: Plan will be to continue supportive care. We will follow her potassium and treat the patient with Kayexalate if needed. We will hydrate her and recheck her labs this afternoon again. Job ID: [id number]
[2019-02-09] MEDS: Sodium Chloride 0.9% 500 ML IV SCH ×2 (15:51→18:30)
[2019-02-09 16:30] LABS: Potassium 5.9 mmol/L (3.5-5.1)
[2019-02-09] MEDS: Sodium Chloride 0.9% 1,000 ML IV SCH (19:57)
[2019-02-10 06:03] LABS: Anion Gap 11 mmol/L (10-20); BUN (Urea Nitrogen) 41 mg/dL (9.8-20.1); Calc. Creatinine Clearance 29 mL/min (70-130); Calcium 9.7 mg/dL (7.8-10.44); Carbon Dioxide 23 mmol/L (23-31); Chloride 107 mmol/L (98-107); Estimated GFR-MDRD 46; Glucose 85 mg/dL (83-110); Magnesium 1.7 mg/dL (1.6-2.6); Phosphorus 3.4 mg/dL (2.3-4.7); Potassium 4.9 mmol/L (3.5-5.1); Sodium 136 mmol/L (136-145)
[2019-02-10] MEDS: Acetaminophen 325 MG TAB PO SCH ×2 (06:33→11:31)
[2019-02-10] MEDS ORDERED: Magnesium 2 GM/50 ML 2 GM in Premix Bag 1 BAG IVPB SCH (06:45)
[2019-02-10 07:54] LABS: #Eosinphils 0.2 thou/uL (0.0-0.7); #Lymphocytes 2.3 thou/uL (1.20-3.40); #Monocytes 0.7 thou/uL (0.11-0.59); #Neutrophils 3.3 thou/uL (1.40-6.50); %Eosinophils 2.5 % (0.0-10.0); %Lymphocytes 35.5 % (21.0-51.0); %Monocytes 11.3 % (0.0-10.0); %Neutrophils 50.7 % (42.0-75.0); Hemoglobin 12.4 g/dL (12.0-16.0); Mean Corpuscular HGB CONC 31.5 g/dL (32.0-36.0); Mean Corpuscular Hemoglobin 28.2 pg (27.0-31.0); Mean Corpuscular Volume 89.5 fL (78.0-98.0); Mean Platelet Volume 9.4 fL (7.4-10.4); Platelet Count 166 thou/uL (130-400); RBC Distribution Width 13.6 % (11.5-14.5); Red Blood Cell (RBC) Count 4.38 mill/uL (4.20-5.40); White Blood Cell (WBC) Count 6.5 thou/uL (4.8-10.8)
[2019-02-10] MEDS: Polyethylene Glycol 3350 17 GM Packet PO SCH (08:05)
[2019-02-10] MEDS: Senokot S 8.6-50 MG TAB PO SCH (08:05)
[2019-02-10] MEDS: Apixaban 2.5 MG TAB PO SCH (08:08)
[2019-02-10] MEDS: Sodium Chloride 0.9% 1,000 ML IV SCH (11:32)
[2019-02-10 15:25] VITALS: BP 92/52; TEMP 97.9
--- NOTE | 2019-02-10 17:33 | DIS ---
DATE OF ADMISSION: 02/01/2019 DATE OF DISCHARGE: 02/10/2019 ADMISSION DIAGNOSES: 1. Status post unwitnessed fall. 2. Right clavicle fracture. 3. Right periorbital contusion, on Eliquis. 4. Non-ST elevated myocardial infarction. 5. Acute on chronic kidney disease. 6. Failure to thrive. CONSULTATIONS: Cardiology, Dr. Fagan. PROCEDURES: None. SUMMARY: The patient is an 84-year-old woman who reportedly had an unwitnessed fall at home. She was found by neighbors with contusion to the right side of her face. She was brought to the emergency department, underwent evaluation and examination and was noted to have the above injuries. The patient will be admitted to the hospital to undergo serial exams and cardiac evaluation. The patient was able to work with Physical and Occupational Therapy, but still required more therapy, at which time, we asked for to be evaluated for inpatient rehab, which she was accepted to. The patient would be discharged to skilled facility at [facility]. At the time of discharge, again she has been working with physical and occupational therapy very slow to progress. She was cleared by Cardiology with recommendations to discontinue the Eliquis and have an IVC filter placed. This was discussed with family and it was decided to not proceed with the IVC filter at this time. The patient was resumed on her home medications. At the time of discharge, she was tolerating a diet. Her pain was controlled. Her bowel function had returned. She will follow up with Cardiology in 1-[address] Juares and she can follow up with Orthopedics as needed for her clavicle fracture which is being treated nonoperatively. Her sling is for comfort. She may follow up with the Trauma Clinic as needed also. Job ID: [id number]
== END 2019-02-10 16:45 | DRG 281 ==
LOC: ERS 19:07 → IMCU/EMU 02-01 01:30 → SJJU 02-02 17:36
PROVIDERS: ADMIT Surgery; ATTEND Surgery
DX: I21.4 Non-ST elevation (NSTEMI) myocardial infarction (principal); S06.0X9A Concussion with loss of consciousness of unspecified duration, initial encounter; N17.9 Acute kidney failure, unspecified; Z68.1 Body mass index [BMI] 19.9 or less, adult; E46 Unspecified protein-calorie malnutrition; I82.513 Chronic embolism and thrombosis of femoral vein, bilateral; S00.11XA Contusion of right eyelid and periocular area, initial encounter; S01.111A Laceration without foreign body of right eyelid and periocular area, initial encounter; S42.021A Displaced fracture of shaft of right clavicle, initial encounter for closed fracture; I25.10 Atherosclerotic heart disease of native coronary artery without angina pectoris; I25.5 Ischemic cardiomyopathy; E78.00 Pure hypercholesterolemia, unspecified; I12.9 Hypertensive chronic kidney disease with stage 1 through stage 4 chronic kidney disease, or unspecified chronic kidney disease; N18.9 Chronic kidney disease, unspecified; E87.5 Hyperkalemia; I05.9 Rheumatic mitral valve disease, unspecified; M81.0 Age-related osteoporosis without current pathological fracture; I25.2 Old myocardial infarction; Z79.01 Long term (current) use of anticoagulants; W01.0XXA Fall on same level from slipping, tripping and stumbling without subsequent striking against object, initial encounter; Y92.009 Unspecified place in unspecified non-institutional (private) residence as the place of occurrence of the external cause
CPT/HCPCS: 36415; 36416; 51701; 70450; 70486; 71045; 72125; 72170; 74018; 80048; 80053; 80306; 80307; 81003; 81015; 82550; 82553; 83690; 83735; 83880; 84100; 84134; 84484; 85025; 85027; 85379; 85610; 85730; 93005; 93306; 93970; 94760; 96360; 99292; A4353; J3475; J3480; J7050

== ENCOUNTER 2022-05-25 10:56 | Inpatient (IN) | payer MEDICARE, MEDICAID ==
[2022-05-25 14:40] LABS: #Eosinphils 0.2 thou/uL (0.0-0.7); #Lymphocytes 1.2 thou/uL (1.20-3.40); #Monocytes 0.6 thou/uL (0.11-0.59); #Neutrophils 4.9 thou/uL (1.40-6.50); %Basophils 0.6 % (0.0-1.0); %Eosinophils 2.8 % (0.0-10.0); %Lymphocytes 17.5 % (21.0-51.0); %Monocytes 8.8 % (0.0-10.0); %Neutrophils 70.3 % (42.0-75.0); Hemoglobin 14.3 g/dL (12.0-16.0); Mean Corpuscular HGB CONC 31.7 g/dL (32.0-36.0); Mean Corpuscular Hemoglobin 31.9 pg (27.0-31.0); Mean Platelet Volume 9.5 fL (7.4-10.4); Platelet Count 134 thou/uL (130-400); RBC Distribution Width 13.1 % (11.5-14.5); Red Blood Cell (RBC) Count 4.47 mill/uL (4.20-5.40); White Blood Cell (WBC) Count 6.9 thou/uL (4.8-10.8)
[2022-05-25 14:55] LABS: ALT (SGPT) 10 U/L (8-55); AST (SGOT) 16 U/L (5-34); Albumin 3.3 g/dL (3.4-4.8); Alkaline Phosphatase 87 U/L (40-110); Anion Gap 16 mmol/L (10-20); BUN (Urea Nitrogen) 27 mg/dL (9.8-20.1); Bilirubin, Total 0.8 mg/dL (0.2-1.2); Calc. Creatinine Clearance 0 mL/min (70-130); Calcium 9.6 mg/dL (7.8-10.44); Carbon Dioxide 21 mmol/L (23-31); Chloride 108 mmol/L (98-107); Estimated GFR 51; Globulin 3.4 g/dL (2.4-3.5); Glucose 132 mg/dL (83-110); Magnesium 2.2 mg/dL (1.6-2.6); Phosphorus 3.3 mg/dL (2.3-4.7); Potassium 4.8 mmol/L (3.5-5.1); Protein, Total 6.7 g/dL (5.8-8.1); Sodium 140 mmol/L (136-145)
[2022-05-25 15:06] LABS: INR-International Normal Ratio 1.4; PTT 33.5 sec (22.9-36.1); Prothrombin Time 17.1 sec (12.0-14.7)
[2022-05-25] MEDS ORDERED: Dextrose 50% Abboject 50 ML SYRINGE SLOW IVP PRN (15:12)
[2022-05-25] MEDS ORDERED: Ondansetron PF 4 MG/2 ML Vial IVP PRN (15:12)
[2022-05-25] MEDS ORDERED: Ondansetron ODT 4 MG TAB PO PRN (15:12)
[2022-05-25] MEDS ORDERED: hydrALAZINE 20 MG/ML VIAL SLOW IVP PRN (15:12)
[2022-05-25] MEDS ORDERED: Dextrose 5% in Water 1,000 ML IV PRN (15:12)
[2022-05-25] MEDS ORDERED: traMADol HCl 50 MG TAB PO PRN ×2 (15:12→15:29)
[2022-05-25] MEDS ORDERED: Cyclobenzaprine 10 MG TAB PO PRN (15:29)
[2022-05-25] MEDS ORDERED: Sodium Chloride 0.9% 1,000 ML IV SCH (15:45)
[2022-05-25] MEDS ORDERED: Phenylephrine 40 MG/NS 250 ML 40 MG in Premix Bag 1 BAG IVPB SCH (16:15)
[2022-05-25] MEDS: traMADol HCl 50 MG TAB PO SCH ×2 (16:39→22:15)
[2022-05-25] MEDS: Acetaminophen 500 MG TAB PO SCH ×2 (16:39→22:15)
[2022-05-25] MEDS: Gabapentin 100 MG CAP PO SCH (16:39)
[2022-05-25 19:56] VITALS: BMI 21.4
[2022-05-25] MEDS ORDERED: Famotidine 20 MG TAB PO SCH (21:00)
[2022-05-25] MEDS: Senokot S 8.6-50 MG TAB PO SCH (22:14)
[2022-05-25 22:39] LABS: Bacteria/HPF 3+ HPF (None Seen); Bilirubin Negative (Negative); Blood, Urine 1+ (Negative); Clarity Turbid (Clear); Glucose, Urine (Dipstick) Normal (Negative); Ketone, Urine Negative (Negative); Leukocyte 75 Leu/uL (Negative); Nitrite Negative (Negative); Protein, Urine (Dipstick) 10 mg/dL (Neg-Trace); Specific Gravity, Urine 1.013 (1.002-1.036); Squamous Epithelial 0-3 HPF (0-3); Urobilinogen Normal mg/dL (Less than 2); WBC/HPF 0-3 HPF (0-3)
[2022-05-25] MEDS ORDERED: cefTRIAXone\\ROCEPHIN 2 GM in Sodium Chloride 0.9% 100 ML IVPB SCH (23:59)
[2022-05-26] MEDS: Gabapentin 100 MG CAP PO SCH ×3 (01:30→15:29)
[2022-05-26 03:39] LABS: SARS-CoV-2 NAA Rapid Test Not Detected (NotDetected)
[2022-05-26] MEDS: Acetaminophen 500 MG TAB PO SCH ×3 (03:39→15:29)
[2022-05-26] MEDS: traMADol HCl 50 MG TAB PO SCH ×3 (03:39→15:29)
[2022-05-26] MEDS ORDERED: Ciprofloxacin 500 MG TAB PO SCH (06:00)
[2022-05-26] MEDS ORDERED: Morphine 4 MG/ML VIAL ONE (08:19)
[2022-05-26] MEDS ORDERED: Morphine 2 MG/ML VIAL SLOW IVP SCH (08:30)
[2022-05-26] MEDS ORDERED: Fentanyl 100 MCG/2 ML VIAL SLOW IVP SCH (08:30)
[2022-05-26] MEDS ORDERED: Polyethylene Glycol 3350 17 GM Packet PO SCH (09:00)
[2022-05-26] MEDS ORDERED: Famotidine 20 MG TAB PO SCH (09:00)
[2022-05-26] MEDS ORDERED: Enoxaparin Sodium 30 MG/0.3 ML SYRINGE SC SCH (09:00)
[2022-05-26] MEDS: Senokot S 8.6-50 MG TAB PO SCH (09:46)
[2022-05-26 15:43] VITALS: BP 132/82; TEMP 98.1
== END 2022-05-26 18:27 | DRG 563 ==
LOC: ERS 10:56 → SURG A 15:25
PROVIDERS: ADMIT Surgery; ATTEND Surgery
PROC: 0QSGXZZ Reposition Right Tibia, External Approach (ICD-10-PCS; principal; 2022-05-26)
DX: S82.291A Other fracture of shaft of right tibia, initial encounter for closed fracture (principal); I13.0 Hypertensive heart and chronic kidney disease with heart failure and stage 1 through stage 4 chronic kidney disease, or unspecified chronic kidney disease; S82.491A Other fracture of shaft of right fibula, initial encounter for closed fracture; E78.5 Hyperlipidemia, unspecified; F03.90 Unspecified dementia, unspecified severity, without behavioral disturbance, psychotic disturbance, mood disturbance, and anxiety; E78.00 Pure hypercholesterolemia, unspecified; M81.0 Age-related osteoporosis without current pathological fracture; N18.9 Chronic kidney disease, unspecified; I48.91 Unspecified atrial fibrillation; I25.10 Atherosclerotic heart disease of native coronary artery without angina pectoris; W19.XXXA Unspecified fall, initial encounter; I50.9 Heart failure, unspecified; I08.1 Rheumatic disorders of both mitral and tricuspid valves; Z20.822 Contact with and (suspected) exposure to COVID-19; I25.2 Old myocardial infarction; Z79.01 Long term (current) use of anticoagulants; Z98.890 Other specified postprocedural states; Z91.81 History of falling; Y92.129 Unspecified place in nursing home as the place of occurrence of the external cause
CPT/HCPCS: 29505; 36415; 70450; 71045; 72125; 80053; 81003; 81015; 83735; 84100; 85025; 85610; 85730; 86850; 86900; 86901; 87086; 93005; 93306; J0696; J1650; J2270; J3490; J7050; U0002